=== PATIENT | male | born 1955 | race African-American/Black ===

== ENCOUNTER 2018-05-06 10:18 | Inpatient (IN) | payer OTHER ==
[~2018-05-06] VITALS: Ht 172.7 cm; Wt 64.4 kg
--- NOTE | ~2018-05-06 | HC ---
[facility] [place] [address] CONSULTATION Name: GENMARYAM EDOUARD Room #: 449-I ADM IN M.R.#: [id number] Admission: 05/06/18 Attend Phys: Des Kowalski MD Discharge: Date of : 55 Report #: [id number] THIS REPORT FOR: //name// CC: Des Ordonez DATE OF SERVICE: 05/07/2018 TYPE OF REPORT: Infectious disease consultation. REASON FOR CONSULTATION: I was asked to evaluate concerning hemoptysis and previous aspergillus involvement of the lung. HISTORY OF PRESENT ILLNESS: The patient was a 63-year old underlying history of COPD and cavitary lung disease. He has had extensive workup at [facility] as well as [facility]. He has had 1 year history of recurring hemoptysis. He has undergone [address] multiple [address] scans and attempts at alleviating this issue. He states that once a month approximately he will have significant amount of hemoptysis. This resolves spontaneously. No definite fever, chills or sweats. He does note that his temperature runs around 99 degrees on a regular basis. He has had infection, treated back in January of 2017 at the onset of these symptoms. He had what I suspect was a staphylococcal infection involving his thoracic vertebra where he was treated with a 6-8 week course of vancomycin. 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 He was unclear exactly how the lung and the spine were connected, but he had been followed by Dr. Grande at [facility] for this. His last followup was the first of the year with no evidence of relapse. There was no plan to continue his antifungal medication at that point. He has had extensive workup for tuberculosis for his grandmother whom he lived with for a short period of time when he was young. 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 He does not recall ever having a positive PPD skin test. He has had multiple skin tests over the last year, all of which have been negative. He has had multiple sputum cultures for AFB, which have been negative. He states that once a month, he will have 1-2 days of gross hemoptysis. It will then resolve. He was doing his pulmonary rehabilitation at [facility] where he developed acute onset of hemoptysis. Coughed up a fair amount of bright red blood. This did not subside and he was seen in the Emergency Room and subsequently admitted. Currently, describes no chest pain. He has had no purulent sputum. No acute fever, chills or sweats. No sinus symptoms. No recent dental work for he is edentulous. No recent skin or lymph issues other than some acne to his face. He lives alone with no recent exposures. No animal exposure. [address] [address] CONSULTATION Name: GENMARYAMIN Room #: 449-I ADM IN M.R.#: [id number] Admission: 05/06/18 Attend Phys: Des Kowalski MD Discharge: Date of : 55 Report #: [id number] ALLERGIES: BENAZEPRIL and intolerance to TETRACYCLINE. MEDICATIONS: Included Lasix, Ventolin, Stiolto inhaler, Lipitor, Spiriva inhaler, Levemir insulin and now on IV antibiotic therapy including Zosyn. 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 FAMILY HISTORY: Lung cancer and tuberculosis. SOCIAL HISTORY: Past smoker. No significant alcohol intake. No HIV risk factors. REVIEW OF SYSTEMS: CONSTITUTIONAL: As noted above with no weight loss. EYES: Negative. HEENT: As noted above. RESPIRATORY: As noted above. CARDIOVASCULAR: Negative. GASTROINTESTINAL: Negative. GENITOURINARY: Negative. MUSCULOSKELETAL: Negative. SKIN: Acne lesions to his face. NEUROLOGICAL: Negative. PSYCHIATRIC: Negative. PHYSICAL EXAMINATION: VITAL SIGNS: Afebrile and hemodynamically stable. GENERAL: The patient was alert and cooperative, in no acute distress. He was able to sit up in bed. He was of normal stature, appeared his stated age. SKIN: With several acneform lesions to his face. LYMPHATIC: Neck, arms and legs unremarkable. HEENT: Eyes are unremarkable. Mouth edentulous. No oral lesions or thrush. NECK: Supple, with normal JVD and carotid upstrokes. Full range of motion. No thyromegaly or mass. LUNGS: Few crackles in the right base posteriorly with no consolidation or rub. HEART: Regular without appreciable murmur, gallop or rub. ABDOMEN: Soft and nontender. No hepatosplenomegaly or mass. GENITORECTAL: Not performed. EXTREMITIES: Unremarkable with no peripheral edema. Right wrist was tender over the carpal tunnel with no increased swelling. PSYCHIATRIC: Mood was normal. NEUROLOGICAL: Nonfocal. LABORATORY DATA: Sodium 143, potassium 4.4, bicarbonate 33 and creatinine 0.9. [address] [address] CONSULTATION Name: MARYAM BLEVINS Room #: 449-I ADM IN M.R.#: [id number] Admission: 05/06/18 Attend Phys: Des Kowalski MD Discharge: Date of : 55 Report #: [id number] Liver function test normal. Albumin at 3.2. Hemoglobin 8.9, WBC 7.1 and platelet count 195,000. Differential was unremarkable. T-spot is pending. TSH 1.4. Vitamin D 14.8. Vitamin B12 700. Urinalysis unremarkable. Sputum for bacteria and AFB is pending. Legionella and strep pneumo antigen pending. Urine culture pending. RADIOLOGICAL DATA: Chest x-ray: Mild superior hilar retraction with infiltrate, off of this; otherwise, mild hyperinflation. CT scan showed an oval area of dense pneumonitis versus pulmonary abscess within the central right upper lobe. This extends obliquely from the right hilum to the apex. There was associated right hilar adenopathy. IMPRESSION: A 63-year old with recurring hemoptysis in the setting of chronic obstructive pulmonary disease and cavitary lung disease. The patient has a history of aspergillus involvement of this area. I do not have confirmation of this. Unclear if this is a new process or residual from what he describes above over the last year. He has not toxic and his sputum production has improved with only blood-tinged sputum at this time. His hemoglobin has remained stable overnight and now at 8.9. RECOMMENDATIONS: We will continue with antibiotic coverage pending culture results. We will need to review records from [facility], which I was told have been asked for. We will then need to decide if there are any other options in order to potentially embolize this area. He will be screened for AFB, fungus and bacteria. We will make adjustments in his antibiotics accordingly. <ELECTRONICALLY SIGNED> By: Jacques Muir MD 05/08/18 1214 1425 [id number] Jacques Muir MD /nt
--- NOTE | ~2018-05-06 | HC ---
[facility] [place] [address] CONSULTATION Name: MARYAM BLEVINS Room #: 449-I ADM IN M.R.#: [id number] Admission: 05/06/18 Attend Phys: Des Kowalski MD Discharge: Date of : 55 Report #: [id number] THIS REPORT FOR: //name// CC: Des Ordonez DATE OF SERVICE: 05/07/2018 REFERRAL PHYSICIAN: Des Kowalski MD REASON FOR REFERRAL: Hemoptysis. HISTORY OF PRESENT ILLNESS: The patient was given caliber is a 62-year-old -[place] male who presents to emergency room with hemoptysis. A pulmonary consultation was requested. The patient states that he has had trouble with hemoptysis in the past. According to the patient, he was diagnosed with fungal infection in his right upper lung field. 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 He was treated with Diflucan for about a year. He states that he was at [facility] about 2 years ago for evaluation. He currently follows Dr. Betancourt at [facility] for his pulmonary problems. According to the patient, he gets recurrent hemoptysis about once a month in the last few days. It resolved spontaneously. In the past, he was evaluated for hemoptysis. He states that he has undergone 3 bronchoscopies in the past. Each time, the bronchoscopy was nondiagnostic. He remembers being told that he does not have tuberculosis. Otherwise denies any fever, night sweats or chills, chest pain or productive cough. He has lost some weight, but recently his appetite is improved and he is gaining some weight. Prior to admission, he was engaged in pulmonary rehabilitation where his cough started along with mild hemoptysis. PAST MEDICAL HISTORY: As mentioned above. COPD, history of heart failure, on diuretics. Diabetes mellitus type 2. PAST SURGICAL HISTORY: He had urethral injury requiring surgical repair. ALLERGIES: TETRACYCLINE, reactions not specified. BENAZEPRIL, reactions unspecified. [facility] [address] [place] [address] CONSULTATION Name: GENMARYAM Room #: 449-I [facility] IN .R.#: [id number] Admission: 05/06/18 Attend Phys: Des Kowalski MD Discharge: Date of : 55 Report #: [id number] HOME MEDICATIONS: Lasix, Ventolin, Stiolto. The patient had been on Spiriva. He is also on Lipitor and insulin supplements FAMILY HISTORY: Noncontributory. SOCIAL HISTORY: The patient stated that he has never smoked. Denies any alcohol use. REVIEW OF SYSTEMS: As mentioned above, otherwise 10-point system review negative. PHYSICAL EXAMINATION: GENERAL: He is awake, alert, in no apparent distress. VITAL SIGNS: Temperature maximum is 100.4 degrees Fahrenheit, pulse is 66, respiratory rate is 16, blood pressure is 100/60 mmHg, saturation 99%. HEENT: Normocephalic, atraumatic. NECK: Supple, without lymphadenopathy or thyromegaly. CHEST: Breath sounds are good with few scattered crackles in the right lung field. No wheezes. CARDIOVASCULAR: Normal S1, S2. No murmur or gallop. There is no JVD. There is no carotid bruit. Pulses are 2+/4+ bilaterally. ABDOMEN: Soft, nontender, no organomegaly or masses felt. GENITOURINARY: Deferred. RECTAL: Deferred. EXTREMITIES: There is no edema, cyanosis or clubbing. LABORATORY DATA: CT chest and chest x-ray reviewed. Appears to be right apical cavitary infiltrates with volume loss. No evidence of pulmonary embolus is noted. Small right hilar adenopathy. Electrolytes are normal. Liver enzymes are normal. WBC 6200, hemoglobin is 9.0, platelets are normal, no evidence of bandemia. Albumin 3.1. IMPRESSION: 1. Hemoptysis. According to history, it appears to be recurrent. The patient states that he has develops mild hemoptysis once a month or so in the last few days and spontaneously resolves. He has had bronchoscopies in the past, which were nondiagnostic. He does have cavitary infiltrate. He does have lesion involving the right apex, which is likely the cause of his hemoptysis. Perhaps, mild bronchitis may be the etiology on this occasion. 2. History of apical cavitary lesion, history suggests aspergilloma. This will be confirmed. Medical records have been requested from [facility] 3. Chronic obstructive pulmonary disease. 4. Recent weight loss, improving. May be related to pulmonary impairment. 5. Diabetes mellitus type 2. [address] [address] CONSULTATION Name: GENMARYAM Room #: 449-I ADM IN .R.#: [id number] Admission: 05/06/18 Attend Phys: Des Kowalski MD Discharge: Date of : 55 Report #: [id number] RECOMMENDATION: We would suggest for now to leave the patient in a negative pressure flow room until TB is ruled out. Request medical records from [facility] to confirm his past pulmonary history. Check sputum for AFB smear, TB spot test. Agree with broad-spectrum antibiotics. We will send sputum for Gram stain, culture and sensitivity along with cytology and AFB smear and culture. Cough suppressant will be helpful given hemoptysis. At this time, I do not think bronchoscopy is indicated, as hemoptysis appears to be mild along with his history. We will continue observation, though if clinically he is with worsening hemoptysis, diagnostic bronchoscopy may be necessary. If hemoptysis becomes massive, he may need interventional radiology consultation for possible bronchial artery embolization etc. Thank you for this consultation. <ELECTRONICALLY SIGNED> By: Leonardo Ivey MD 05/08/18 1432 1343 0023 Leonardo Ivey MD /nt
--- NOTE | ~2018-05-06 | EKG ---
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1955 Requested By: Cait Muonz Order Number: [id number] MD: Agapito Marie Measurements Intervals [place] Rate: 90 P: 76 IA: 147 QRS: 71 QRSD: 123 T: 64 QT: 381 QTc: 467 Interpretive Statements Sinus rhythm Ventricular premature complex Right bundle branch block No previous ECG available for comparison Electronically Signed On 05-06-2018 16:54:31 CDT by Agapito Marie [email or web address] <ELECTRONICALLY SIGNED> By: Agapito Marie MD, [facility] 05/06/18 1654 [address] [facility] Agapito Marie MD, FACC /EPI
[2018-05-06 10:40] VITALS: BP 118/69
[2018-05-06 11:33] LABS: HEMATOCRIT 30.2 % (42.0-52.0); MCH 21.5 pg (26.0-34.0); MCHC 29.9 g/dL (28.0-37.0); MCV 71.9 fL (80.0-100.0); PLATELET COUNT 189 thou/uL (150-400); RBC 4.19 mil/uL (4.50-6.00); RDW 17.8 % (10.5-14.5); WBC 6.2 thou/uL (4.0-11.0)
[2018-05-06 11:47] LABS: CREATININE 0.8 mg/dL (0.7-1.3); POTASSIUM 4.7 mmol/L (3.5-5.1)
[2018-05-06 11:52] LABS: ALBUMIN 3.1 g/dL (3.4-5.0); TOTAL BILIRUBIN 0.4 mg/dL (<0.1-1.0); TOTAL PROTEIN 7.6 g/dL (6.4-8.2)
[2018-05-06 12:02] LABS: PROTIME 10.2 Seconds (9.3-11.4)
[2018-05-06 12:12] LABS: ABSOLUTE NEUTROPHILS 4.2 thou/uL (1.4-8.2); ANISOCYTOSIS 2+; HYPOCHROMASIA 2+; MICROCYTES 1+; PLATELET ESTIMATE NORMAL
[2018-05-06 12:19] LABS: URINE BILIRUBIN NEGATIVE (Negative); URINE BLOOD NEGATIVE (Negative); URINE CLARITY CLEAR; URINE COLOR YELLOW; URINE GLUCOSE-RANDOM* NEGATIVE (Negative); URINE KETONES NEGATIVE (Negative); URINE LEUKOCYTES-REFLEX NEGATIVE (Negative); URINE NITRITE-REFLEX POSITIVE (Negative); URINE PROTEIN (DIPSTICK) NEGATIVE (Negative); URINE UROBILINOGEN 0.2 E.U./dl (0.2-1.0)
[2018-05-06 12:30] LABS: CASTS None Seen /LPF (None Seen); CRYSTALS None Seen /LPF (None Seen); SQUAMOUS 0-3 Few /LPF (0-3)
[2018-05-06 12:31] LABS: BACTERIA-REFLEX 1-9 Few /HPF (None Seen); URINE RBC None Seen /HPF (0-2); URINE WBC-REFLEX 0-5 Rare /HPF (0-5)
[2018-05-06] MEDS ORDERED: LASIX 40 MG TAB40 M2 PO (13:26)
[2018-05-06] MEDS ORDERED: VENTOLIN HFA 1818 GM INH (13:26)
[2018-05-06] MEDS ORDERED: STIOLTO RESPIMAT4 GM IH (13:27)
[2018-05-06] MEDS ORDERED: ATORVASTATIN CA40 MG PO (13:27)
[2018-05-06] MEDS ORDERED: SPIRIVA RESPIMAT4 GM INH (13:27)
[2018-05-06] MEDS ORDERED: LEVEMIR FL100 UNIT/2 SUBQ (14:25)
[2018-05-06 14:54] VITALS: BP 124/68
[2018-05-06 14:59] LABS: ALBUMIN 3.2 g/dL (3.4-5.0); TOTAL PROTEIN 7.8 g/dL (6.4-8.2)
[2018-05-06 15:25] LABS: TSH 1.455 uIU/mL (0.358-3.740)
[2018-05-06 16:02] VITALS: BP 114/66
[2018-05-06 16:28] VITALS: BP 116/61
[2018-05-06 21:35] VITALS: BP 120/75
[2018-05-06 22:55] VITALS: BP 119/61
[2018-05-07 04:56] VITALS: BP 119/67
[2018-05-07 05:59] LABS: HEMATOCRIT 30.2 % (42.0-52.0); HEMOGLOBIN 8.9 gm/dL (14.0-18.0); MCH 21.5 pg (26.0-34.0); MCHC 29.6 g/dL (28.0-37.0); MCV 72.7 fL (80.0-100.0); RBC 4.15 mil/uL (4.50-6.00); RDW 17.9 % (10.5-14.5); WBC 7.1 thou/uL (4.0-11.0)
[2018-05-07 06:09] LABS: CALCIUM 8.8 mg/dL (8.5-10.1); CREATININE 0.9 mg/dL (0.7-1.3); MAGNESIUM 1.7 mg/dL (1.8-2.4); POTASSIUM 4.4 mmol/L (3.5-5.1)
[2018-05-07 08:16] VITALS: BP 99/62
[2018-05-07 21:03] VITALS: BP 118/71
[2018-05-08 02:24] VITALS: BP 121/72
[2018-05-08 07:15] LABS: HEMATOCRIT 31.9 % (42.0-52.0); HEMOGLOBIN 9.6 gm/dL (14.0-18.0); MCH 21.7 pg (26.0-34.0); MCHC 30.2 g/dL (28.0-37.0); RBC 4.43 mil/uL (4.50-6.00); RDW 17.9 % (10.5-14.5); WBC 5.1 thou/uL (4.0-11.0)
[2018-05-08 07:23] LABS: CALCIUM 9.2 mg/dL (8.5-10.1); CREATININE 1.1 mg/dL (0.7-1.3); MAGNESIUM 1.6 mg/dL (1.8-2.4); POTASSIUM 4.5 mmol/L (3.5-5.1)
[2018-05-08 08:00] VITALS: BP 137/78
[2018-05-08 16:00] VITALS: BP 127/78
[2018-05-09 02:32] VITALS: BP 135/86
[2018-05-09 08:00] VITALS: BP 146/89
[2018-05-09 09:44] LABS: HEMATOCRIT 33.4 % (42.0-52.0); MCH 21.7 pg (26.0-34.0); MCHC 29.9 g/dL (28.0-37.0); MCV 72.6 fL (80.0-100.0); RBC 4.59 mil/uL (4.50-6.00)
[2018-05-09 09:51] LABS: CALCIUM 9.5 mg/dL (8.5-10.1); CREATININE 0.8 mg/dL (0.7-1.3); MAGNESIUM 1.8 mg/dL (1.8-2.4); POTASSIUM 4.7 mmol/L (3.5-5.1)
[2018-05-09] MEDS ORDERED: CEFDINIR300 MG PO (13:31)
[2018-05-09 13:50] VITALS: BP 146/89
== END 2018-05-09 17:29 | disposition home or self-care (01) | DRG 205 ==
LOC: ER 10:18 → EROBS 12:47 → 4W 12:47
PROVIDERS: Internal Medicine; Physician Assistant
DX: J98.4 Other disorders of lung (principal); J85.2 Abscess of lung without pneumonia; R04.2 Hemoptysis; J44.9 Chronic obstructive pulmonary disease, unspecified; D64.9 Anemia, unspecified; G56.00 Carpal tunnel syndrome, unspecified upper limb; E78.5 Hyperlipidemia, unspecified; E11.9 Type 2 diabetes mellitus without complications; Z87.891 Personal history of nicotine dependence; Z88.1 Allergy status to other antibiotic agents; Z88.8 Allergy status to other drugs, medicaments and biological substances; Z99.81 Dependence on supplemental oxygen; Z80.1 Family history of malignant neoplasm of trachea, bronchus and lung; Z83.1 Family history of other infectious and parasitic diseases; J43.9 Emphysema, unspecified
CPT/HCPCS: 10045